=== PATIENT | male | born 1960 | race Caucasian/White ===

== ENCOUNTER 2019-09-19 19:40 | Inpatient (IN) | payer MEDICAID, OTHER ==
[~2019-09-19] VITALS: Ht 165.1 cm; Wt 58.2 kg
--- NOTE | 2019-09-19 19:54 | NUR ---
PT BIB EMS FROM [facility] TRANSEFER. REPORT STATES SEPSIS WAS DIAGNOSED WITH WORK UP. PT RECEIVED 2 L NS AND 1 L LR, ZOFRAN, TORADOL, ABX UNICEN AND FLAGIL, PHENERGEN AND ROBINOL FROM [place]. PT REPORTS " I STILL FEEL LIKE CRAP", BUT OTHERWISE DENIES ANY SPECIFIC C/O AT THIS TIME. PT PLACED ON ALL MONITORING, CALL LIGHT WITHIN REACH, ALL SAFETY MEASURES IN PLACE.
[2019-09-19 20:54] LABS: CULTURE INDICATED? YES; MICROSCOPIC INDICATED
[2019-09-19] MEDS: NICOTINE 14MG/24 HR PATCH.TD24 TD SCH (21:00)
[2019-09-19] MEDS ORDERED: ACETAMINOPHEN 325 MG TABLET PO PRN (21:00)
[2019-09-19] MEDS: PLEASE ENTER ALLERGIES MC SCH (21:00)
--- NOTE | 2019-09-19 21:09 | NUR ---
REPORT TO IVY MARTÍNEZ
[2019-09-19 21:36] VITALS: BP 166/90
[2019-09-19] MEDS: ONDANSETRON 2MG/ML, 2ML IVPush PRN (21:53)
[2019-09-19] MEDS: NS + 20MEQ KCL 1,000 ML IV SCH (23:16)
[2019-09-19] MEDS: CIPROFLOXACIN/PMX 400MG/200ML 200 ML IV SCH (23:18)
[2019-09-19] MEDS: HEPARIN 5,000 UNITS/ML, 1ML SQ SCH (23:19)
[2019-09-20] MEDS: METRONIDAZOLE PMX 500MG/100ML 100 ML IV SCH ×3 (00:49→16:30)
[2019-09-20 02:41] VITALS: BP 154/89
[2019-09-20] MEDS: PLEASE ENTER ALLERGIES MC SCH (05:00)
[2019-09-20 06:31] LABS: BASOPHILS # (AUTO) 0.09 x10^3/uL (0-0.1); BASOPHILS % (AUTO) 1 % (0-1); EOSINOPHILS % (AUTO) 0 % (1-7); LYMPHOCYTES # (AUTO) 0.94 x10^3/uL (1-3.4); LYMPHOCYTES % (AUTO) 10 % (22-44); MD NO; MEAN CORPUSCULAR HEMOGLOBIN 33.8 pg (27.5-34.5); MEAN CORPUSCULAR VOLUME 99.5 fL (81-97); MEAN PLATELET VOLUME 7.4 fL (7.4-10.4); MONOCYTES # (AUTO) 0.29 x10^3/uL (0.2-0.8); MONOCYTES % (AUTO) 3 % (2-9); NEUTROPHILS # (AUTO) 7.94 x10^3/uL (1.8-6.8); NEUTROPHILS % (AUTO) 86 % (42-75); PLATELET COUNT 270 x10^3/uL (130-400); RED CELL DISTRIBUTION WIDTH 15.9 % (9.4-14.8)
[2019-09-20 06:45] LABS: ANION GAP 11 mmol/L (5-15); CALCIUM 7.6 mg/dL (8.5-10.1); CHLORIDE 110 mmol/L (98-107)
[2019-09-20 06:54] LABS: ALKALINE PHOSPHATASE 130 U/L (45-117); CREATININE 1.07 mg/dL (0.7-1.3); TOTAL PROTEIN 5.8 g/dL (6.4-8.2)
[2019-09-20 07:14] LABS: ALANINE AMINOTRANSFERASE 1977 U/L (12-78)
[2019-09-20] MEDS: HEPARIN 5,000 UNITS/ML, 1ML SQ SCH ×2 (07:15→16:53)
[2019-09-20 08:22] VITALS: BP 178/101
[2019-09-20] MEDS ORDERED: LISI-420 PO (08:56)
[2019-09-20] MEDS ORDERED: ALBU8.5H8 PO (08:57)
[2019-09-20] MEDS ORDERED: ALBU6.7H8 PO (08:59)
[2019-09-20 09:00] VITALS: BP 141/104
[2019-09-20] MEDS: NS + 20MEQ KCL 1,000 ML IV SCH (09:13)
[2019-09-20] MEDS ORDERED: ACETAMINOPHEN 500 MG TABLET PO PRN (10:30)
[2019-09-20 10:33] LABS: AMPHETAMINE SCREEN, URINE Negative (Negative); BARBITURATE SCREEN, URINE Negative (Negative); BENZODIAZEPINE SCREEN, URINE Negative (Negative); CANNABINOID SCREEN, URINE Negative (Negative); COCAINE SCREEN, URINE Negative (Negative); METHADONE SCREEN, URINE Negative (Negative); OPIATE SCREEN, URINE Negative (Negative)
[2019-09-20] MEDS: LISINOPRIL 40 MG TABLET PO SCH (10:59)
[2019-09-20] MEDS: CIPROFLOXACIN/PMX 400MG/200ML 200 ML IV SCH ×2 (10:59→23:11)
[2019-09-20] MEDS: MORPHINE SULFATE 4 MG/ML, 1ML IV PRN (11:14)
[2019-09-20] MEDS ORDERED: ACETYLCYSTEINE IV ONE ×3 (11:30→17:30)
[2019-09-20] MEDS ORDERED: DEXTROSE 5% IV ONE ×3 (11:30→17:30)
[2019-09-20] MEDS: ONDANSETRON 2MG/ML, 2ML IVPush PRN (13:33)
[2019-09-20 15:00] VITALS: BP 161/95
[2019-09-20 19:35] VITALS: BP 169/110
[2019-09-20] MEDS ORDERED: NS + 20MEQ KCL 1,000 ML IV SCH (20:37)
[2019-09-20] MEDS: NICOTINE 14MG/24 HR PATCH.TD24 TD SCH (21:00)
[2019-09-20 22:00] VITALS: BP 159/92
[2019-09-21] MEDS: HEPARIN 5,000 UNITS/ML, 1ML SQ SCH ×3 (00:56→15:47)
[2019-09-21] MEDS: METRONIDAZOLE PMX 500MG/100ML 100 ML IV SCH ×3 (00:57→15:47)
[2019-09-21 01:11] VITALS: BP 145/76
[2019-09-21 06:04] LABS: BASOPHILS # (AUTO) 0.04 x10^3/uL (0-0.1); BASOPHILS % (AUTO) 1 % (0-1); EOSINOPHILS # (AUTO) 0.06 x10^3/uL (0-0.4); EOSINOPHILS % (AUTO) 1 % (1-7); LYMPHOCYTES # (AUTO) 1.42 x10^3/uL (1-3.4); LYMPHOCYTES % (AUTO) 19 % (22-44); MD NO; MEAN CORPUSCULAR HEMOGLOBIN 33.5 pg (27.5-34.5); MEAN CORPUSCULAR HGB CONC 33.7 g/dL (33.2-36.2); MEAN CORPUSCULAR VOLUME 99.5 fL (81-97); MEAN PLATELET VOLUME 7.7 fL (7.4-10.4); MONOCYTES # (AUTO) 0.38 x10^3/uL (0.2-0.8); MONOCYTES % (AUTO) 5 % (2-9); NEUTROPHILS # (AUTO) 5.68 x10^3/uL (1.8-6.8); NEUTROPHILS % (AUTO) 75 % (42-75); PLATELET COUNT 227 x10^3/uL (130-400); RED BLOOD COUNT 4.14 x10^6/uL (4.38-5.82); RED CELL DISTRIBUTION WIDTH 15.6 % (9.4-14.8)
[2019-09-21 06:15] LABS: CHLORIDE 107 mmol/L (98-107)
[2019-09-21 06:28] LABS: ALANINE AMINOTRANSFERASE 1177 U/L (12-78); ALBUMIN 2.7 g/dL (3.4-5.0); ALKALINE PHOSPHATASE 114 U/L (45-117); ANION GAP 10 mmol/L (5-15); BILIRUBIN,TOTAL 3.1 mg/dL (0.2-1.0); CALCIUM 7.7 mg/dL (8.5-10.1); CREATININE 0.89 mg/dL (0.7-1.3); TOTAL PROTEIN 5.4 g/dL (6.4-8.2)
[2019-09-21 08:17] VITALS: BP 150/87
[2019-09-21] MEDS: AMLODIPINE 5 MG TABLET PO SCH (08:21)
[2019-09-21] MEDS: LISINOPRIL 40 MG TABLET PO SCH (08:21)
[2019-09-21] MEDS: POTASSIUM CHLORIDE 20 MEQ TAB.ER.PRT PO SCH ×2 (11:40→15:47)
[2019-09-21] MEDS: CIPROFLOXACIN/PMX 400MG/200ML 200 ML IV SCH ×2 (11:40→23:55)
[2019-09-21] MEDS: PANTOPROZOLE 40MG TABLET PO SCH (11:40)
[2019-09-21 14:10] VITALS: BP 138/85
[2019-09-21] MEDS: MORPHINE SULFATE 4 MG/ML, 1ML IV PRN (14:30)
[2019-09-21 15:30] LABS: CLOSTRIDIUM DIFFICILE ANTIGEN NEGATIVE; CLOSTRIDIUM DIFFICILE TOXIN NEGATIVE (Negative)
[2019-09-21 19:56] VITALS: BP 126/77
[2019-09-21] MEDS: NICOTINE 14MG/24 HR PATCH.TD24 TD SCH (21:00)
[2019-09-22 00:40] VITALS: BP 102/51
[2019-09-22] MEDS: HEPARIN 5,000 UNITS/ML, 1ML SQ SCH ×2 (01:05→08:29)
[2019-09-22] MEDS: METRONIDAZOLE PMX 500MG/100ML 100 ML IV SCH ×2 (01:05→08:29)
[2019-09-22] MEDS: PANTOPROZOLE 40MG TABLET PO SCH (05:12)
[2019-09-22 06:04] LABS: BASOPHILS # (AUTO) 0.07 x10^3/uL (0-0.1); BASOPHILS % (AUTO) 1 % (0-1); EOSINOPHILS # (AUTO) 0.39 x10^3/uL (0-0.4); EOSINOPHILS % (AUTO) 6 % (1-7); INTERNATIONAL NORMALIZED RATIO 1.26 (0.93-1.1); LYMPHOCYTES # (AUTO) 2.09 x10^3/uL (1-3.4); LYMPHOCYTES % (AUTO) 31 % (22-44); MD NO; MEAN CORPUSCULAR HEMOGLOBIN 33.5 pg (27.5-34.5); MEAN CORPUSCULAR HGB CONC 33.6 g/dL (33.2-36.2); MEAN CORPUSCULAR VOLUME 99.7 fL (81-97); MEAN PLATELET VOLUME 7.9 fL (7.4-10.4); MONOCYTES # (AUTO) 0.51 x10^3/uL (0.2-0.8); MONOCYTES % (AUTO) 8 % (2-9); NEUTROPHILS # (AUTO) 3.76 x10^3/uL (1.8-6.8); NEUTROPHILS % (AUTO) 55 % (42-75); PLATELET COUNT 213 x10^3/uL (130-400); PROTHROMBIN TIME 13.4 Seconds (9.6-11.5); RED BLOOD COUNT 3.94 x10^6/uL (4.38-5.82); RED CELL DISTRIBUTION WIDTH 16.2 % (9.4-14.8)
[2019-09-22 06:10] LABS: CHLORIDE 108 mmol/L (98-107)
[2019-09-22 06:17] LABS: ALANINE AMINOTRANSFERASE 800 U/L (12-78); ALBUMIN 2.8 g/dL (3.4-5.0); ALKALINE PHOSPHATASE 96 U/L (45-117); ANION GAP 7 mmol/L (5-15); BILIRUBIN,TOTAL 2.4 mg/dL (0.2-1.0); CREATININE 0.79 mg/dL (0.7-1.3); TOTAL PROTEIN 5.3 g/dL (6.4-8.2)
[2019-09-22 07:48] VITALS: BP 127/84
[2019-09-22] MEDS: POTASSIUM CHLORIDE 20 MEQ TAB.ER.PRT PO SCH (08:23)
[2019-09-22] MEDS: AMLODIPINE 5 MG TABLET PO SCH (08:23)
[2019-09-22] MEDS: LISINOPRIL 40 MG TABLET PO SCH (08:24)
[2019-09-22] MEDS: CIPROFLOXACIN/PMX 400MG/200ML 200 ML IV SCH (11:19)
[2019-09-22] MEDS ORDERED: NITR0.4T41 SL (11:44)
[2019-09-22] MEDS ORDERED: GABA300C10 PO (11:44)
[2019-09-22] MEDS ORDERED: QUET100T4 PO (11:44)
[2019-09-22] MEDS ORDERED: FLUO20CA23 PO (11:44)
[2019-09-22] MEDS ORDERED: AMLO-150 PO (11:44)
[2019-09-22] MEDS ORDERED: SUMA50TA3 PO (11:44)
[2019-09-22] MEDS ORDERED: LISI40TA PO (11:44)
== END 2019-09-22 13:05 | disposition home or self-care (01) ==
LOC: ED 20:51 → EDIP 20:55 → 3N 21:34 → DCLOUNGE 09-22 12:54
PROVIDERS: ADMIT Internal Medicine; ATTEND Family Medicine
DX: K71.2 Toxic liver disease with acute hepatitis (principal); R65.11 Systemic inflammatory response syndrome (SIRS) of non-infectious origin with acute organ dysfunction; E43 Unspecified severe protein-calorie malnutrition; K72.00 Acute and subacute hepatic failure without coma; E86.0 Dehydration; K52.9 Noninfective gastroenteritis and colitis, unspecified; E78.5 Hyperlipidemia, unspecified; B17.9 Acute viral hepatitis, unspecified; F17.200 Nicotine dependence, unspecified, uncomplicated; F32.9 Major depressive disorder, single episode, unspecified; F41.1 Generalized anxiety disorder; I10 Essential (primary) hypertension; J44.9 Chronic obstructive pulmonary disease, unspecified; N40.0 Benign prostatic hyperplasia without lower urinary tract symptoms; Z80.3 Family history of malignant neoplasm of breast; Z85.828 Personal history of other malignant neoplasm of skin; N28.1 Cyst of kidney, acquired; Z68.21 Body mass index [BMI] 21.0-21.9, adult; T39.1X5A Adverse effect of 4-Aminophenol derivatives, initial encounter
CPT/HCPCS: 36415; 80053; 80074; 80307; 81001; 85025; 85610; 87046; 87086; 87324; 89055; G0378; J0132; J0744; J1644; J2405; J3480; J7060; J7070; J2270; Q0177

== ENCOUNTER 2019-11-18 15:44 | Emergency (ER) | payer MEDICAID, OTHER ==
[~2019-11-18] VITALS: Ht 175.3 cm; Wt 59.1 kg
[~2019-11-18 15:44] MED LIST: ALBU6.7H8 PO; ALBU8.5H8 PO; AMLO-150 PO; FLUO20CA23 PO; GABA300C10 PO; LISI-420 PO; LISI40TA PO; NITR0.4T41 SL; QUET100T4 PO; SUMA50TA3 PO
[2019-11-18 16:10] VITALS: BP 135/77
--- NOTE | 2019-11-18 16:25 | NUR ---
PT TO [facility] 40 PER [facility]. PT WAS JUST DISCHARGED FROM [facility] RECENTLY FOR SAME BEHAVIOR. PT STATES "I JUST WANT TO END IT ALL. I WANT TO JUST TAKE ALL MY MEDICATION AT ONCE AND GET IT OVER WITH." PT DOES NOT ACT ON PLAN, INSTEAD CALLS 911 FOR TREATMENT AND PLACEMENT. \\ PT IS A/O X4, WITH FROM, POSTIVE PULSES AND SMOKER'S COUGH. PT PLACED INTO GOWN, CLOTHES REMOVED FROM ROOM, GARAGE DOOR DOWN. PT GIVEN A BLANKET AND HE IMMEDIATELY LAYS DOWN. PT CONTINUOUSLY STATES "I'M SORRY, I KNOW I SHOULDN'T BE TAKING UP A BED, WHEN THERE ARE REALLY SICK PEOPLE OUT THERE. LAB AT BEDSIDE. WILL CONTINUE TO MONITOR. SITTER AT BEDSIDE.
[2019-11-18 16:28] LABS: BASOPHILS # (AUTO) 0.03 x10^3/uL (0-0.1); BASOPHILS % (AUTO) 0 % (0-1); EOSINOPHILS # (AUTO) 0.08 x10^3/uL (0-0.4); EOSINOPHILS % (AUTO) 1 % (1-7); LYMPHOCYTES # (AUTO) 2.69 x10^3/uL (1-3.4); LYMPHOCYTES % (AUTO) 33 % (22-44); MD NO; MEAN CORPUSCULAR HEMOGLOBIN 33.8 pg (27.5-34.5); MEAN CORPUSCULAR HGB CONC 33.5 g/dL (33.2-36.2); MEAN CORPUSCULAR VOLUME 100.9 fL (81-97); MONOCYTES # (AUTO) 0.53 x10^3/uL (0.2-0.8); MONOCYTES % (AUTO) 7 % (2-9); NEUTROPHILS # (AUTO) 4.75 x10^3/uL (1.8-6.8); NEUTROPHILS % (AUTO) 59 % (42-75); PLATELET COUNT 329 x10^3/uL (130-400); RED BLOOD COUNT 4.64 x10^6/uL (4.38-5.82); RED CELL DISTRIBUTION WIDTH 15.3 % (9.4-14.8)
[2019-11-18 16:40] LABS: ALBUMIN 3.4 g/dL (3.4-5.0); ANION GAP 9 mmol/L (5-15); CALCIUM 8.6 mg/dL (8.5-10.1); CHLORIDE 111 mmol/L (98-107)
[2019-11-18 16:56] LABS: AMPHETAMINE SCREEN, URINE Negative (Negative); BARBITURATE SCREEN, URINE Negative (Negative); BENZODIAZEPINE SCREEN, URINE Negative (Negative); CANNABINOID SCREEN, URINE Negative (Negative); COCAINE SCREEN, URINE Negative (Negative); METHADONE SCREEN, URINE Negative (Negative); OPIATE SCREEN, URINE Negative (Negative)
[2019-11-18] MEDS ORDERED: POTASSIUM CHLORIDE 20 MEQ TAB.ER.PRT PO ONE (17:00)
[2019-11-18] MEDS ORDERED: POTASSIUM CHLORIDE 20 MEQ TAB.ER.PRT ONE (17:39)
--- NOTE | 2019-11-18 17:43 | NUR ---
BREAK RN: PT LAYING ON LEELEE, CO-OPERATIVE WITH CARE. PT "ATE A LITTLE BIT" PT VERY APOLOGIC. SAYING "I'M SORRY OFTEN" PT MEDICATED ORDERED. ONE BAG OF BELONGS LABELED WITH PTS NAME AND REMOVED FROM ROOM. PT CONT IN SECURE ROOM WITH SITTER OUTSIDE. NO ATTEMPT TO HARM SELF NOTED.
--- NOTE | 2019-11-18 18:30 | NUR ---
PT UP TO BR PER PEDIS. PT DENIES NEEDS. DINNER TRAY AND ADDITIONAL WARM BLANKETS GIVEN. PT STABLE, SITTER AT ROOM.
--- NOTE | 2019-11-18 19:37 | NUR ---
PT LYING DOWN IN ROOM. WILL CONTINUE TO MONITOR, SITTER AT ROOMSIDE.
--- NOTE | 2019-11-18 20:31 | NUR ---
BAT DONE, RESULTS 0.129. PT GIVEN A GLASS OF WATER AND REMOTE FOR TV. WILL CONTINUE TO MONITOR.
--- NOTE | 2019-11-18 21:02 | NUR ---
PT REQUESTING TO GO HOME. NOTIFIED. PT REMAINS IN ROOM WITH SITTER. PT WATCHING TV AT THIS TIME.
--- NOTE | 2019-11-18 22:49 | NUR ---
PT RESTING, SITTER AT BEDSIDE.
--- NOTE | 2019-11-18 23:18 | NUR ---
DISCHARGE INSTRUCTIONS GIVEN TO PATIENT. PT AMBULATES OUT OF ED WITHOUT DIFF.
== END 2019-11-18 23:22 | disposition home or self-care (01) ==
LOC: ED 16:44
DX: F10.120 Alcohol abuse with intoxication, uncomplicated (principal); E87.6 Hypokalemia; R45.851 Suicidal ideations; Z72.9 Problem related to lifestyle, unspecified; I10 Essential (primary) hypertension; Y90.9 Presence of alcohol in blood, level not specified
CPT/HCPCS: 36415; 80048; 80307; 82040; 85025; 99283

== ENCOUNTER 2020-04-14 07:10 | Inpatient (IN) | payer MEDICAID ==
[~2020-04-14] VITALS: Ht 165.1 cm; Wt 59.0 kg
[2020-04-14] MEDS ORDERED: ONDANSETRON 2MG/ML, 2ML ONE (07:26)
[2020-04-14] MEDS ORDERED: SODIUM CHLORIDE 0.9% 1,000ML IVBOLUS ONE (07:30)
[2020-04-14] MEDS ORDERED: ONDANSETRON 2MG/ML, 2ML IVPush ONE (07:30)
--- NOTE | 2020-04-14 07:48 | NUR ---
BIB [facility] TODAY APPROX 0600 - PT FOUND OFF HOME O2 BY EMS AND BP 60/38. BS 122. PT RECIEVED 600CC NS AND ZOFRAN 4MG. ABRASION TO NOSE AND FOREHEAD, NO BLOOD THINNERS. PT PLACED ON MONITOR AND EKG DONE. 500CC BOLUS STARTED PER ODALYS GAMBOA FOR BP 78/54. LABS AND CT ORDERED. CALL LIGHT WITHIN REACH.
[2020-04-14 07:51] LABS: BASOPHILS # (AUTO) 0.05 x10^3/uL (0-0.1); BASOPHILS % (AUTO) 1 % (0-1); EOSINOPHILS # (AUTO) 0.03 x10^3/uL (0-0.4); EOSINOPHILS % (AUTO) 0 % (1-7); LYMPHOCYTES # (AUTO) 1.69 x10^3/uL (1-3.4); LYMPHOCYTES % (AUTO) 17 % (22-44); MD NO; MEAN CORPUSCULAR HGB CONC 33.5 g/dL (33.2-36.2); MEAN CORPUSCULAR VOLUME 101.6 fL (81-97); MEAN PLATELET VOLUME 6.9 fL (7.4-10.4); MONOCYTES # (AUTO) 0.66 x10^3/uL (0.2-0.8); MONOCYTES % (AUTO) 7 % (2-9); NEUTROPHILS # (AUTO) 7.37 x10^3/uL (1.8-6.8); NEUTROPHILS % (AUTO) 75 % (42-75); PLATELET COUNT 210 x10^3/uL (130-400); RED BLOOD COUNT 4.17 x10^6/uL (4.38-5.82)
[2020-04-14 08:00] LABS: ALANINE AMINOTRANSFERASE 18 U/L (12-78); ALBUMIN 2.9 g/dL (3.4-5.0); ANION GAP 14 mmol/L (5-15); CALCIUM 7.4 mg/dL (8.5-10.1); CHLORIDE 100 mmol/L (98-107); CREATININE 3.15 mg/dL (0.7-1.3)
--- NOTE | 2020-04-14 08:04 | NUR ---
PT TO CT
[2020-04-14 08:05] LABS: ALKALINE PHOSPHATASE 96 U/L (45-117); BILIRUBIN,TOTAL 2.1 mg/dL (0.2-1.0); TROPONIN I < 0.015 ng/mL (0.000-0.045)
[2020-04-14] MEDS ORDERED: NS + 20MEQ KCL 1,000 ML IV ONE (10:10)
[2020-04-14] MEDS: NS + 20MEQ KCL 1,000 ML IV SCH ×3 (10:16→20:40)
--- NOTE | 2020-04-14 10:20 | NUR ---
REPORT RECEIVED FROM KORIN HAYNES. PT REMAINS ON MONITORS, VSS. PT A&OX4, AWARE OF POC, TO BE [facility] ADMIT. 2ND IV STARTED. NO DISTRESS, CONT TO MONITOR.
--- NOTE | 2020-04-14 12:00 | NUR ---
PT RESTING IN BED, NO DISTRESS. PT TO BE ER HOLD UNTIL FLOOR BED AVAILABLE. PT REMAINS ON MONITORS. CONT TO MONITOR.
--- NOTE | 2020-04-14 12:53 | NUR ---
HOSPITAL BED ORDERED FOR PT.
--- NOTE | 2020-04-14 14:29 | NUR ---
PT PLACED ON HOSPITAL BED, REMAINS ON MONITORS, VSS. ADMITTING AT BEDSIDE FOR ASSESSMENT. PT REMAINS AWARE OF POC. CONT TO MONITOR.
[2020-04-14] MEDS ORDERED: SODIUM CHLORIDE 0.9% 1,000 ML IV SCH (14:30)
[2020-04-14] MEDS ORDERED: ACETAMINOPHEN 325 MG TABLET PO PRN (14:30)
[2020-04-14] MEDS ORDERED: POTASSIUM CHLORIDE 40 MEQ in SODIUM CHLORIDE 0.9% 500 ML IV ONE (14:30)
[2020-04-14] MEDS ORDERED: PROMETHAZINE 25 MG/ML, 1ML IM PRN (14:30)
[2020-04-14] MEDS ORDERED: LABETALOL 5MG/ML, 20ML IVPush PRN (14:30)
[2020-04-14] MEDS ORDERED: hydrALAzine 20 MG/ML, 1ML IVPush PRN (14:30)
--- NOTE | 2020-04-14 15:42 | NUR ---
MEDICATIONS REQUESTED FROM PHARMACY. PT REMAINS ER HOLD, PT AWARE OF POC. CONT TO MONITOR.
[2020-04-14] MEDS ORDERED: HEPARIN 5,000 UNITS/ML, 1ML ONE (16:21)
[2020-04-14] MEDS: ALBUTEROL HFA 90 MCG/SPRAY INH SCH ×2 (16:43→20:00)
[2020-04-14] MEDS: HEPARIN 5,000 UNITS/ML, 1ML SQ SCH (16:44)
--- NOTE | 2020-04-14 17:36 | NUR ---
BREAK RN: REPORT TO ELOY HAYNES
[2020-04-14 17:47] LABS: ANION GAP 6 mmol/L (5-15); CALCIUM 7.3 mg/dL (8.5-10.1); CHLORIDE 104 mmol/L (98-107); CREATININE 2.46 mg/dL (0.7-1.3)
--- NOTE | 2020-04-14 18:03 | NUR ---
PT TRANSFERED TO FLOOR. HAS ALL OWN BELONGINGS UPON TRANSFER.
[2020-04-14] MEDS: GABAPENTIN 300 MG CAPSULE PO SCH ×2 (18:13→19:59)
[2020-04-14 19:32] VITALS: BP 133/86
[2020-04-14 19:33] VITALS: BP 127/89
[2020-04-14 19:34] VITALS: BP 148/91
[2020-04-14] MEDS: QUETIAPINE 100MG TABLET PO PRN (19:59)
[2020-04-14] MEDS ORDERED: MAGNESIUM SULFATE PMX 2GM/50ML 50 ML IV ONE (22:00)
[2020-04-15] MEDS: HEPARIN 5,000 UNITS/ML, 1ML SQ SCH ×3 (00:11→15:20)
[2020-04-15 00:27] VITALS: BP 132/84
[2020-04-15] MEDS: NS + 20MEQ KCL 1,000 ML IV SCH ×2 (01:20→06:00)
[2020-04-15] MEDS: ALBUTEROL HFA 90 MCG/SPRAY INH SCH ×4 (02:45→19:53)
[2020-04-15 07:18] LABS: ALANINE AMINOTRANSFERASE 16 U/L (12-78); ALBUMIN 2.8 g/dL (3.4-5.0); ANION GAP 5 mmol/L (5-15); CHLORIDE 113 mmol/L (98-107); CREATININE 1.66 mg/dL (0.7-1.3)
[2020-04-15 07:25] LABS: BASOPHILS # (AUTO) 0.03 x10^3/uL (0-0.1); BASOPHILS % (AUTO) 0 % (0-1); EOSINOPHILS # (AUTO) 0.12 x10^3/uL (0-0.4); EOSINOPHILS % (AUTO) 2 % (1-7); LYMPHOCYTES # (AUTO) 2.56 x10^3/uL (1-3.4); LYMPHOCYTES % (AUTO) 34 % (22-44); MD NO; MEAN CORPUSCULAR HEMOGLOBIN 34.5 pg (27.5-34.5); MEAN CORPUSCULAR HGB CONC 33.6 g/dL (33.2-36.2); MEAN CORPUSCULAR VOLUME 102.7 fL (81-97); MEAN PLATELET VOLUME 7.6 fL (7.4-10.4); MONOCYTES # (AUTO) 0.56 x10^3/uL (0.2-0.8); MONOCYTES % (AUTO) 7 % (2-9); NEUTROPHILS # (AUTO) 4.33 x10^3/uL (1.8-6.8); NEUTROPHILS % (AUTO) 57 % (42-75); PLATELET COUNT 186 x10^3/uL (130-400); RED BLOOD COUNT 4.01 x10^6/uL (4.38-5.82); RED CELL DISTRIBUTION WIDTH 14.5 % (9.4-14.8)
[2020-04-15 07:28] LABS: ALKALINE PHOSPHATASE 105 U/L (45-117); BILIRUBIN,TOTAL 4.2 mg/dL (0.2-1.0)
[2020-04-15 08:19] VITALS: BP 152/72
[2020-04-15] MEDS: ONDANSETRON 2MG/ML, 2ML IVPush PRN (08:40)
[2020-04-15] MEDS: GABAPENTIN 300 MG CAPSULE PO SCH ×3 (08:41→19:54)
[2020-04-15] MEDS: FOLIC ACID 1 MG TABLET PO SCH (08:41)
[2020-04-15] MEDS: FLUOXETINE HCL 20 MG CAPSULE PO SCH (08:41)
[2020-04-15] MEDS: THIAMINE 100MG TABLET PO SCH (08:41)
[2020-04-15] MEDS: MULTIVITAMIN 1 TABLET PO SCH (08:41)
[2020-04-15] MEDS: AMLODIPINE 5 MG TABLET PO SCH (10:36)
[2020-04-15] MEDS: LACTATED RINGERS 1,000 ML IV SCH ×2 (10:38→17:53)
[2020-04-15] MEDS ORDERED: SUMATRIPTAN 25 MG TABLET ONE ×2 (12:38→19:47)
[2020-04-15] MEDS: SUMATRIPTAN 50 MG TABLET PO PRN ×2 (12:39→19:54)
[2020-04-15 13:12] VITALS: BP 160/102
[2020-04-15 14:44] VITALS: BP 129/83
[2020-04-15] MEDS ORDERED: LOPERAMIDE 2 MG CAPSULE PO PRN (15:00)
[2020-04-15 18:00] VITALS: BP 125/90
[2020-04-15] MEDS: QUETIAPINE 100MG TABLET PO PRN (19:54)
[2020-04-15] MEDS: CALCIUM CARBONATE 500 MG TABLET PO SCH (19:54)
[2020-04-15 20:01] VITALS: BP 140/89
[2020-04-16 00:21] VITALS: BP 129/88
[2020-04-16] MEDS: HEPARIN 5,000 UNITS/ML, 1ML SQ SCH ×3 (00:23→16:29)
[2020-04-16] MEDS: LACTATED RINGERS 1,000 ML IV SCH (02:02)
[2020-04-16] MEDS: ALBUTEROL HFA 90 MCG/SPRAY INH SCH ×4 (02:02→21:55)
[2020-04-16 06:44] LABS: ALBUMIN 2.6 g/dL (3.4-5.0); ANION GAP 6 mmol/L (5-15); CALCIUM 7.6 mg/dL (8.5-10.1); CHLORIDE 111 mmol/L (98-107)
[2020-04-16 06:47] LABS: ALANINE AMINOTRANSFERASE 15 U/L (12-78); ALKALINE PHOSPHATASE 83 U/L (45-117); BILIRUBIN,TOTAL 1.9 mg/dL (0.2-1.0); TOTAL PROTEIN 5.3 g/dL (6.4-8.2)
[2020-04-16 07:38] VITALS: BP 147/95
[2020-04-16] MEDS: MULTIVITAMIN 1 TABLET PO SCH (08:15)
[2020-04-16] MEDS: GABAPENTIN 300 MG CAPSULE PO SCH (08:15)
[2020-04-16] MEDS: AMLODIPINE 5 MG TABLET PO SCH (08:15)
[2020-04-16] MEDS: CALCIUM CARBONATE 500 MG TABLET PO SCH ×2 (08:15→21:55)
[2020-04-16] MEDS: THIAMINE 100MG TABLET PO SCH (08:15)
[2020-04-16] MEDS: FOLIC ACID 1 MG TABLET PO SCH (08:15)
[2020-04-16] MEDS: FLUOXETINE HCL 20 MG CAPSULE PO SCH (08:15)
[2020-04-16 08:22] LABS: BASOPHILS # (AUTO) 0.04 x10^3/uL (0-0.1); BASOPHILS % (AUTO) 1 % (0-1); EOSINOPHILS # (AUTO) 0.17 x10^3/uL (0-0.4); EOSINOPHILS % (AUTO) 3 % (1-7); LYMPHOCYTES # (AUTO) 2.57 x10^3/uL (1-3.4); LYMPHOCYTES % (AUTO) 39 % (22-44); MD NO; MEAN CORPUSCULAR HEMOGLOBIN 34.4 pg (27.5-34.5); MEAN CORPUSCULAR HGB CONC 33.5 g/dL (33.2-36.2); MEAN CORPUSCULAR VOLUME 102.8 fL (81-97); MEAN PLATELET VOLUME 8.1 fL (7.4-10.4); MONOCYTES % (AUTO) 8 % (2-9); NEUTROPHILS % (AUTO) 51 % (42-75); PLATELET COUNT 177 x10^3/uL (130-400); RED CELL DISTRIBUTION WIDTH 14.2 % (9.4-14.8)
[2020-04-16] MEDS ORDERED: SUMATRIPTAN 25 MG TABLET ONE ×3 (08:26→21:53)
[2020-04-16] MEDS: SUMATRIPTAN 50 MG TABLET PO PRN ×2 (12:00→21:54)
[2020-04-16] MEDS: POTASSIUM CHLORIDE 20 MEQ TAB.ER.PRT PO SCH (12:00)
[2020-04-16 14:27] VITALS: BP 143/114
[2020-04-16 14:35] VITALS: BP 154/100
[2020-04-16 14:36] VITALS: BP 155/102
[2020-04-16] MEDS: BUTALB/APAP/CAFFEINE 50MG/325MG/40MG PO PRN (14:53)
[2020-04-16] MEDS: ONDANSETRON 2MG/ML, 2ML IVPush PRN (18:13)
[2020-04-16 20:33] VITALS: BP 158/99
[2020-04-16] MEDS: QUETIAPINE 100MG TABLET PO PRN (21:54)
[2020-04-17] MEDS: HEPARIN 5,000 UNITS/ML, 1ML SQ SCH ×2 (00:29→07:43)
[2020-04-17 01:13] VITALS: BP 135/88
[2020-04-17] MEDS: ALBUTEROL HFA 90 MCG/SPRAY INH SCH ×2 (03:00→07:42)
[2020-04-17 07:04] VITALS: BP 152/95
[2020-04-17] MEDS: POTASSIUM CHLORIDE 20 MEQ TAB.ER.PRT PO SCH (07:44)
[2020-04-17] MEDS: MULTIVITAMIN 1 TABLET PO SCH (07:44)
[2020-04-17] MEDS: FLUOXETINE HCL 20 MG CAPSULE PO SCH (07:44)
[2020-04-17] MEDS: FOLIC ACID 1 MG TABLET PO SCH (07:44)
[2020-04-17] MEDS: CALCIUM CARBONATE 500 MG TABLET PO SCH (07:44)
[2020-04-17] MEDS: THIAMINE 100MG TABLET PO SCH (07:44)
[2020-04-17] MEDS ORDERED: LISINOPRIL 40 MG TABLET PO SCH (09:00)
[2020-04-17] MEDS ORDERED: AMLODIPINE 10 MG TAB PO SCH (09:00)
[2020-04-17] MEDS ORDERED: ONDA4TAB7 PO (09:50)
[2020-04-17] MEDS ORDERED: Calcium Carbonate PO (09:50)
[2020-04-17] MEDS ORDERED: POTA20TA6 PO (09:50)
[2020-04-17] MEDS ORDERED: LOPE2CAP PO (09:50)
[2020-04-17] MEDS: BUTALB/APAP/CAFFEINE 50MG/325MG/40MG PO PRN (10:04)
[2020-04-17] MEDS ORDERED: SUMATRIPTAN 25 MG TABLET ONE (11:58)
[2020-04-17] MEDS: SUMATRIPTAN 50 MG TABLET PO PRN (12:00)
[2020-04-17 12:05] VITALS: BP 126/85
== END 2020-04-17 12:32 | disposition home or self-care (01) | DRG 469 ==
LOC: ED 07:50 → EDIP 10:41 → 4WST 18:03 → DCLOUNGE 04-17 12:21
PROVIDERS: ADMIT Family Medicine; ATTEND Internal Medicine
DX: N17.0 Acute kidney failure with tubular necrosis (principal); E86.0 Dehydration; I95.9 Hypotension, unspecified; E44.1 Mild protein-calorie malnutrition; Z68.21 Body mass index [BMI] 21.0-21.9, adult; E83.51 Hypocalcemia; E87.6 Hypokalemia; F10.129 Alcohol abuse with intoxication, unspecified; F17.210 Nicotine dependence, cigarettes, uncomplicated; I10 Essential (primary) hypertension; I25.10 Atherosclerotic heart disease of native coronary artery without angina pectoris; J44.9 Chronic obstructive pulmonary disease, unspecified; J96.11 Chronic respiratory failure with hypoxia; S00.81XA Abrasion of other part of head, initial encounter; F32.9 Major depressive disorder, single episode, unspecified; F41.9 Anxiety disorder, unspecified; Z80.6 Family history of leukemia; Z85.828 Personal history of other malignant neoplasm of skin; Z87.19 Personal history of other diseases of the digestive system; Z99.81 Dependence on supplemental oxygen
CPT/HCPCS: 36415; 70450; 71045; 72125; 76770; 80048; 80053; 80307; 82330; 82533; 83036; 83735; 83880; 84100; 84439; 84443; 84484; 85025; 93005; 93306; 96374; 96375; 99285; G0378; J1644; J2405; J3480; J0360; J3475; J7030; J7040; J7120